=== PATIENT | female | born 1980 | race Caucasian/White ===

== ENCOUNTER → 2020-07-27 13:38 | Outpatient (CLI) | payer BC, SELFPAY ==
[2020-07-27 14:34] LABS: Alanine Aminotransferase 37 U/L (12-78); Albumin Level 4.4 g/dl (3.5-5.0); Albumin/Globulin Ratio 1.6 (1.1-1.8); Alkaline Phosphatase 77 U/L (38-126); Aspartate Amino Transferase 41 U/L (14-36); Basophils % 0.5 % (0.1-2.0); Bilirubin,Total 0.4 mg/dl (0.2-1.3); Blood Urea Nitrogen 6 mg/dl (7-17); Calcium 9.4 mg/dl (8.4-10.2); Carbon Dioxide 29 mmol/L (22.0-30.0); Chloride 101 mmol/L (98-107); Eosinophils # 0.1 K/mm3 (0.0-0.4); Eosinophils % 1.8 % (0.1-12.0); Estimated Glomerular Filt Rate 110 ml/min (>60); GFR (African American) 133 ML/MIN (>60); Globulin 2.8 g/dL (1.3-3.2); Glucose 102 mg/dl (74-100); Hematocrit 39.1 % (37.0-47.0); Hemoglobin 12.9 g/dL (12.2-16.2); Lymphocytes % 31.3 % (10-50); Mean Corpuscular HGB Conc 32.9 g/dL (31.8-35.4); Mean Corpuscular Hemoglobin 30.6 pg (27.0-31.2); Mean Platelet Volume 10.4 fl (7.4-10.4); Monocytes # 0.3 K/mm3 (0.1-1.0); Monocytes % 4.2 % (1.7-9.3); Neutrophils % 62.1 % (37.0-80.0); Platelet Count 96 K/mm3 (142-424); Red Blood Count 4.21 M/mm3 (4.20-5.40); Red Cell Distribution Width 14.1 % (11.5-17.5); Sodium 138 mmol/L (136-145); Total Protein,Serum 7.2 g/dl (6.3-8.2); White Blood Count 6.4 K/mm3 (4.8-10.8)
[2020-07-30 11:03] LABS: HIV Screen 4th Generation wRfx Non Reactive (Non Reactive); Hep A Ab, IgM Negative (Negative); Hep A Ab, Total Positive (Negative); Hep B Core Ab, Total Negative (Negative)
[2020-07-30 11:23] LABS: Hep B Surface Ab, Qual Non Reactive (.); Hepatitis B Surface Antigen Negative (Negative); Hepatitis C Antibody >11.0 s/co ratio (0.0-0.9)
== END ==
PROVIDERS: Visit Provider Family Medicine
DX: F19.11 Other psychoactive substance abuse, in remission (principal); Z87.898 Personal history of other specified conditions; R94.5 Abnormal results of liver function studies; Z11.4 Encounter for screening for human immunodeficiency virus [HIV]
CPT/HCPCS: 80053; 85025; 86703; 86704; 86706; 86708; 87340; 87380; G0432

== ENCOUNTER → 2020-08-07 08:21 | Outpatient (CLI) | payer BC, SELFPAY ==
--- NOTE | 2020-08-07 08:21 | US_ITS ---
PROCEDURE: US LIVER CLINICAL INDICATION: cirrhosis COMPARISON: No exams were available for comparison FINDINGS: PANCREAS: Unremarkable. No obvious mass or abnormal fluid collection. No ductal dilatation LIVER: No focal liver lesions demonstrated. Homogeneous echogenicity. No intrahepatic biliary ductal dilatation evident. There is appropriate direction of blood flow within a non dilated portal vein RIGHT KIDNEY: Unremarkable. Normal size and echogenicity. No hydronephrosis GALLBLADDER: Prior cholecystectomy. Common bile duct is normal at 3 mm. IMPRESSION: Prior cholecystectomy otherwise negative liver ultrasound. Dictated by: Jarvis Moreno MD 08/08/2020 13:22 Jarvis Moreno MD in [place] 08/08/2020 13:22
--- NOTE | 2020-08-07 08:21 | MM_ITS ---
PROCEDURE: MM DIG MAMM BI DX W/CAD Digital Breast Tomosynthesis Included CLINICAL INDICATION: 12:00 right nipple palpable mass There is a history of breast cancer in the patient's paternal aunt. COMPARISON: [facility] [place] TOMOSYN COBY from 03/20/2020 TECHNIQUE: Standard CC and MLO images and 3D Tomosynthesis was obtained. R2 CAD reviewed. FINDINGS: Prominent fibroglandular densities are seen in the subareolar regions of both breasts. There is a probable nodular density just deep to the nipple right breast best seen on mandi images and similar to findings on the previous outside study 03/20/2020. Recommend the patient return for spot compression views and ultrasound for additional evaluation. There are few scattered benign-appearing microcalcifications in each breast. There is no suspicious cluster of microcalcifications. IMPRESSION: Fibrofatty parenchyma with possible developing asymmetric density deep to the nipple right breast BI-RAD Category: 0 Need Additional Imaging Evaluation FOLLOW-UP: IMM Immediate Follow-up Recommended (A letter has been sent to the patient regarding results of the study.) Dictated by: Dr. Hilario Valencia MD 08/17/2020 09:27 Dr. Hilario Valencia MD in [place] 08/17/2020 09:27
== END ==
PROVIDERS: PCP Family Medicine; Visit Provider Family Medicine
DX: N63.41 Unspecified lump in right breast, subareolar (principal); K74.60 Unspecified cirrhosis of liver
CPT/HCPCS: 76705; 77062; 77066; G0279

== ENCOUNTER → 2020-08-23 18:05 | Outpatient (CLI) | payer BC, SELFPAY ==
[2020-08-23 18:58] LABS: Basophils % 0.5 % (0.1-2.0); Eosinophils # 0.1 K/mm3 (0.0-0.4); Eosinophils % 1.3 % (0.1-12.0); Hematocrit 37.4 % (37.0-47.0); Hemoglobin 11.9 g/dL (12.2-16.2); Lymphocytes # 1.4 K/mm3 (0.7-4.5); Lymphocytes % 34.6 % (10-50); Mean Corpuscular HGB Conc 31.7 g/dL (31.8-35.4); Mean Corpuscular Hemoglobin 30.7 pg (27.0-31.2); Mean Corpuscular Volume 96.8 fl (81-99); Mean Platelet Volume 9.5 fl (7.4-10.4); Monocytes # 0.2 K/mm3 (0.1-1.0); Neutrophils # 2.3 K/mm3 (1.8-7.8); Neutrophils % 58.6 % (37.0-80.0); Platelet Count 106 K/mm3 (142-424); Red Blood Count 3.86 M/mm3 (4.20-5.40); Red Cell Distribution Width 14.4 % (11.5-17.5)
[2020-08-23 19:22] LABS: C-Reactive Protein 5.5 mg/L (0-4)
[2020-08-26 14:50] LABS: Anti-Centromere B Antibodies <0.2 AI (0.0-0.9); Anti-Jo-1 <0.2 AI (0.0-0.9); Anti-Smith Antibody <0.2 AI (0.0-0.9); Antichromatin Antibodies <0.2 AI (0.0-0.9); Antiscleroderma-70 Antibodies <0.2 AI (0.0-0.9); RNP Antibodies <0.2 AI (0.0-0.9); Sjogren's Anti-SS-A <0.2 AI (0.0-0.9); Sjogren's Anti-SS-B <0.2 AI (0.0-0.9)
[2020-08-26 16:36] LABS: Anti-DNA (DS) Ab Qn 1 IU/mL (0-9)
== END ==
PROVIDERS: Visit Provider Family Medicine
DX: R50.9 Fever, unspecified (principal)
CPT/HCPCS: 85025; 86140; 86225; 86235; 86618

== ENCOUNTER → 2020-08-27 13:45 | Outpatient (CLI) | payer BC, SELFPAY ==
--- NOTE | 2020-08-27 13:50 | US_ITS ---
PROCEDURE: US BREAST RT COMPLETE CLINICAL INDICATION: abnormal mammogram COMPARISON: No exams were available for comparison FINDINGS: There is a small hypoechoic benign-appearing cystic lesion at the 12 o'clock position mid breast measuring 0.2 by 0.3 x 0.2 cm. There is a larger hypoechoic cystic lesion with smooth well-defined borders 1 o'clock position near the nipple measuring 0.8 by 0.9 by 1.1 cm. There are couple of associated mildly dilated ducts immediately adjacent to the cystic lesion. There is a 3rd cystic lesion at the 9 o'clock position near the nipple measuring 1.1 x 0.4 cm with a small satellite hypoechoic lesion with internal echoes likely representing a complex cyst. There is no suspicious solid lesions seen. There is a normal appearing node in the axilla. IMPRESSION: Multiple benign-appearing cystic lesions as described and recommend the patient have a six-month follow-up ultrasound at the time of the return to the normal screening mammogram schedule Dictated by: Dr. Hilario Valencia MD 08/29/2020 08:27 Dr. Hilario Valencia MD in [place] 08/29/2020 08:27
--- NOTE | 2020-08-27 13:50 | MM_ITS ---
PROCEDURE: MM DIG MAMM DX UNILAT RT CAD Digital Breast Tomosynthesis Included CLINICAL INDICATION: ABN MAMM COMPARISON: [facility] SCN DIG BREAST TOMOSYN COBY from 03/20/2020 MG MM DIG MAMM BI DX W/CAD from 08/07/2020 US US BREAST RT COMPLETE from 08/27/2020 TECHNIQUE: Standard CC and MLO images and 3D Tomosynthesis was obtained. R2 CAD reviewed. Additional 90 degree lateral view and spot compression MLO and CC views were obtained. FINDINGS: There is a smoothly marginated round nodular density just superior and lateral to the nipple. The small nodular density just medial and deep to the nipple seen on the study of 08/07/2020 appears to press out somewhat on the spot CC view. No other abnormality is seen on the spot views and no suspicious microcalcifications. Ultrasound performed the same date shows a small benign-appearing cystic lesion at the 1 o'clock position measuring 0.2 by 0.3 x 0.2 cm and a slightly larger hypoechoic cystic-appearing lesion at the 1 o'clock position near the nipple measuring 0.8 by 0.9 by 1.1 cm with a couple of adjacent slightly dilated ducts noted. There is good acoustic enhancement deep to this lesion. There is a somewhat oval hypoechoic cystic-appearing lesion at the 9 o'clock position near the nipple measuring 1.1 x 0.4 by 1.0 cm. These cystic-appearing lesions appear to correspond in size and location with the nodular densities on the problem solving views on the current mammogram. Suggest the patient return to normal yearly screening mammography schedule and patient should probably have a six-month follow-up ultrasound right breast as well. IMPRESSION: Apparent benign-appearing cystic lesions for right breast with no suspicious solid lesions seen and no findings of architectural distortion. BI-RAD Category: 2 Benign Finding(s) FOLLOW-UP: 6M 6Month Follow-up to return to normal yearly screening schedule (A letter has been sent to the patient regarding results of the study.) Dictated by: Dr. Hilario Valencia MD 08/29/2020 08:24 Dr. Hilario Valencia MD in [place] 08/29/2020 08:24
== END ==
PROVIDERS: PCP Family Medicine; Visit Provider Family Medicine
DX: R92.8 Other abnormal and inconclusive findings on diagnostic imaging of breast (principal)
CPT/HCPCS: 76641; 77061; 77065; G0279

== ENCOUNTER 2020-09-07 19:51 | Emergency (ER) | payer BC, SELFPAY ==
[2020-09-07 19:55] VITALS: BP 121/79; PULSE 70; RESP 18; TEMP 36.6; O2SAT 98; BMI 23.0
--- NOTE | 2020-09-07 19:58 | HMH.EDUTC ---
[facility] [place] Disposition Clinical Impression: Right carpal tunnel syndrome Disposition: Home, Self-Care Condition on Discharge: Good Instructions: DI for Carpal Tunnel Syndrome Additional Instructions: Rest the extremity, Wear the elastic wrist splint as much time as tolerated, Elevate the extremity as tolerated while you are resting. Take naproxen for pain. I sent in a prescription to your pharmacy. Follow up with Dr. Chakraborty (orthopedics). I put in a referral but you need to call his office and schedule an appointment. Follow up with your regular doctor. GO TO THE ER FOR ANY WORSENING SYMPTOMS Prescriptions: Naproxen [Naproxen 500mg tab] 500 mg PO BIDP PRN #30 tab PRN Reason: Moderate Pain Transmission Status: Received by [facility] Referrals: Guru Lara MD [Primary Care Provider] - Forms: Work/School Release Time of Disposition: 20:30 Medical Decision Making - Medical Records Medical records reviewed: No: I reviewed the patient's medical records. - Laurent Inquiry Pt receiving controlled substance: No Vital Signs: 09/07/20 19:55 09/07/20 20:40 Temperature 98 F 98 F Temperature Source Oral Pulse Rate 73 Pulse Rate [Right] 70 Respiratory Rate 18 14 Blood Pressure 119/74 Blood Pressure [Right Arm] 121/79 Blood Pressure Mean [Right Arm] 93 Blood Pressure Source [Right Arm] Automatic Cuff Blood Pressure Position [Right Arm] Sitting 02 Sat by Pulse Oximetry 98 Oxygen Delivery Method Room Air Orders (Tests/Meds): ORDERS Category Date Time Status XR hand RT min 3V Stat Exams 09/07/20 20:04 Taken XR wrist RT min 3V Stat Exams 09/07/20 20:04 Taken - Radiology Data #1 Image(s): Wrist, Hand Image Reviewed: Yes I reviewed the patient's radiology image Preliminary Findings: No Fracture Seen [facility] [place] HPI - General Stated complaint: right wrist and hand swelling Time Seen by Provider: 09/07/20 19:58 - History of Present Illness Provider Complaint: She reports that she has had right hand pain and numbness intermitently for the past 3 weeks. She denies any known injury. She statest that she wakes up at night and her symptoms are way worse. - Related Data Previous Rx's Medication Instructions Recorded gabapentin 600 mg tablet 600 mg PO TID PRN #90 tab 08/23/20 ibuprofen 800 mg tablet 800 mg PO Q8H PRN #90 tab 08/23/20 Naproxen [Naproxen 500mg tab] 500 mg PO BIDP PRN #30 tab 09/07/20 Allergies Allergy/AdvReac Type Severity Reaction Status Date / Time aspirin [From Paul Aspirin] Allergy Hives Verified 09/07/20 19:55 azithromycin Allergy hives, Verified 09/07/20 19:55 nausea From Tramadol HCl Allergy Unknown Uncoded 08/23/20 13:02 steroids AdvReac Severe Agitated Uncoded 08/23/20 13:11 [facility] History - Hepatitis A Screen Attestation statement:: This patient has been screened for Hepatitis A risk factors. I have reviewed the patient's past medical history: Yes Other Surgeries: Yes: Cholecystectomy, , Tubal Ligation Comment: uretine ablasion - Social History Smoking Status: Current every day smoker Tobacco Type: cigarettes Alcohol Intake: never Substance Use Type: former substance user, painkillers, opiates, prescription drug Occupational Status: unemployed Family Hx:: Cancer ROS Obtained: Yes All systems reviewed & no additional complaints - Constitutional Constitutional: Reports system reviewed and no additional complaints, except as docu - Eyes Eyes: Reports system reviewed and no additional complaints, except as docu - ENT Ears, Nose, Mouth, and Throat: Reports system reviewed and no additional complaints, except as docu - Cardiovascular Cardiovascular: Reports system reviewed and no additional complaints, except as docu - Respiratory Respiratory: Reports system reviewed and no additional complaints, except as docu - Gastrointestinal Gastrointestingal: Reports: system reviewed and no additional compl
--- NOTE | 2020-09-07 20:04 | XR_ITS ---
PROCEDURE: XR WRIST RT MIN 3V CLINICAL INDICATION: PAIN Pain and swelling COMPARISON: CR XR HAND RT MIN 3V from 09/07/2020 FINDINGS: No fracture or dislocation. No lytic or blastic change. There is normal mineralization. The joint spaces are well-preserved. No significant degenerative/arthritic changes. No erosive changes evident. Other findings:None. IMPRESSION: No acute findings. Dictated by: Jarvis Moreno MD 09/08/2020 05:52 Jarvis Moreno MD in [place] 09/08/2020 05:52
[2020-09-07 20:40] VITALS: BP 119/74; PULSE 73; RESP 14; TEMP 36.6
== END 2020-09-07 20:39 | disposition home or self-care (01) ==
PROVIDERS: Emergency Provider Nurse Practitioner Family; PCP Family Medicine
DX: G56.01 Carpal tunnel syndrome, right upper limb (principal)
CPT/HCPCS: 73110; 73130; 99202; G0463

== ENCOUNTER → 2020-11-13 13:06 | Outpatient (CLI) | payer BC, SELFPAY ==
--- NOTE | 2020-11-13 13:06 | US_ITS ---
PROCEDURE: US FNA BREAST CLINICAL INDICATION: Palpable nodule left breast at 1 o'clock. COMPARISON: MG MM DIG MAMM BI DX W/CAD from 08/07/2020 US US BREAST LT LIMITED from 11/13/2020 FINDINGS: Left breast ultrasound: At 12 o'clock there is a complicated 7 x 6 mm cyst. At 1 o'clock near the nipple there is a complex cystic lesion measuring 23 x 14 mm with apparent solid appearing component peripherally versus underlying dense breast tissue. This nodule was localized for FNA. Patient does report that this area has somewhat decreased in size by palpation. There are multiple other smaller cystic lesions of the left breast. Left breast FNA: Following obtaining informed consent and time-out procedure with sonographic guidance and using buffered lidocaine with aseptic technique, aspiration was performed of the complex nodule. Small amount of pus appearing aspirate was obtained and sent for culture and sensitivity. Cytology: Negative for malignancy. Numerous foamy macrophages consistent with benign cyst contents. Culture and sensitivity is pending IMPRESSION: Uneventful ultrasound-guided FNA of the left breast of the complex nodule at 1 o'clock. Cytology was negative for malignancy. There was some pus appearing material aspirated from this nodule. Suspect that this represents a small abscess. Recommend repeat ultrasound in 3 months assuming that the area does not increase in size by palpation. Also recommend correlation with culture and sensitivity which is pending Dictated by: Jarvis Moreno MD 11/16/2020 09:53 Jarvis Moreno MD in [place] 11/16/2020 09:53
== END ==
PROVIDERS: PCP Family Medicine; Visit Provider Surgery
DX: N64.9 Disorder of breast, unspecified (principal); N60.02 Solitary cyst of left breast
CPT/HCPCS: 10005; 76642; 87070; 87205

== ENCOUNTER 2022-07-31 14:30 | Emergency (ER) | payer BC, SELFPAY ==
[2022-07-31 15:20] VITALS: RESP 20; TEMP 36.8; O2SAT 97; BMI 18.6
--- NOTE | 2022-07-31 15:28 | EXP.UTC ---
Discharge Plan Disposition Patient Disposition: Home, Self-Care Condition: Good Prescriptions Prescriptions: New phenazopyridine [Pyridium] 200 mg tablet 200 mg PO Q8H 2 Days Qty: 6 0RF sulfamethoxazole-trimethoprim [Bactrim DS] 800-160 mg Tablet 1 tab PO BID Qty: 14 0RF ondansetron 4 mg Tablet,Disintegrating 4 mg PO Q8H PRN (Reason: Nausea) Qty: 12 0RF No Action gabapentin 300 mg capsule 300 mg PO TID PRN (Reason: pain) Qty: 90 3RF Referrals Follow up/Referrals: Guru Lara MD [Primary Care Provider] - See instructions Activity Restrictions/Add. Instructions Additional Instructions/Restrictions: Drink plenty of fluids. Take tylenol or ibuprofen for pain or fever. Take the medications as directed. Follow up with your regular doctor. GO TO THE ER FOR ANY WORSENING SYMPTOMS The pyridium will make your urine turn orange, this is an expected side effect. It will stain your clothes if it comes into contact with them. We will culture the urine. That will tell what bacteria is causing your infection and which antibiotics will treat it best. Sometimes the first antibiotic we prescribe turns out to not work against different bacteria. So, make sure you follow up within 3 days if you are not getting better. Clinical Impressions Clinical Impression: UTI (urinary tract infection) Stand Alone Forms Stand Alone Forms: Work/School Release Instructions Patient Instructions: Urinary Tract Infection, Urine Culture, Phenazopyridine Discharge ED Provider: Garrett Dodson [facility] General Stated complaint: possible kidney inf Time Seen by Provider: 07/31/22 15:28 History of Present Illness Provider Complaint: She states that for the past 2 days she has had dysuria, low back pain, and urinary frequency. Related Data Previous Rx's Medication Instructions Recorded gabapentin 300 mg capsule 300 mg PO TID PRN pain #90 caps 06/17/22 ondansetron 4 mg disintegrating 4 mg PO Q8H PRN Nausea #12 tabs 07/31/22 tablet phenazopyridine 200 mg tablet 200 mg PO Q8H 2 days #6 tabs 07/31/22 (Pyridium) sulfamethoxazole 800 1 tab PO BID #14 tabs 07/31/22 mg-trimethoprim 160 mg tablet (Bactrim DS) Allergies Allergy/AdvReac Type Severity Reaction Status Date / Time aspirin [From Paul Aspirin] Allergy Hives Verified 07/31/22 15:39 azithromycin Allergy hives, Verified 07/31/22 15:39 nausea From Tramadol HCl Allergy Unknown Uncoded 06/16/22 14:05 steroids AdvReac Severe Agitated Uncoded 06/16/22 14:05 [facility] Disclaimer: The information contained in this section may have been updated after the patient was seen, as this information can be updated by other users. Medical History No significant past medical history Family History Other No significant family history Social History Smoking Status: Current every day smoker tobacco type: cigarettes packs per day: 2 alcohol intake: never substance use type: former substance user, opiates, painkillers and prescription drug current occupational status: unemployed Travel in the last 8 weeks: None ROS Obtained: Yes All systems reviewed & no additional complaints except as documented Constitutional Constitutional: Reports system reviewed and no additional complaints, except as documented, Denies chills and Denies fever(s) Eyes Eyes: Denies eye discharge ENT Ears, Nose, Mouth, and Throat: Denies dysphagia, Denies sore throat and Denies throat swelling Cardiovascular Cardiovascular: Denies chest pain and Denies dyspnea Respiratory Respiratory: Denies chest congestion, Denies cough and Denies dyspnea Gastrointestinal Gastrointestingal: Denies abdominal pain, constipation, diarrhea, dysphagia, nausea or vomiting Genitourinary Female Genitourinary: Reports as per HPI, R
[2022-07-31 16:10] VITALS: BP 101/69; PULSE 84; RESP 20; TEMP 36.8; O2SAT 97
[2022-07-31 18:11] LABS: Apearance,Urine Cloudy (Clear); Blood, Urine 1+ (Negative); Color,Urine Yellow (Yellow); Glucose,Urine (UA) Negative (Negative); Ketones,Urine Negative (Negative); Protein,Urine Negative (Negative)
[2022-07-31 18:12] LABS: Bilirubin,Urine Negative (Negative); UTC Leukocyte Esterase,Urine 2+ (Negative); UTC Nitrate,Urine Negative (Negative); Urobilinogen,Urine 0.2 EU/dl (0.2)
== END 2022-07-31 16:10 | disposition home or self-care (01) ==
PROVIDERS: Emergency Provider Nurse Practitioner Family; PCP Family Medicine
DX: N39.0 Urinary tract infection, site not specified (principal)
CPT/HCPCS: 81003; 87086; 87088; 87186; 99212; 99213; G0463

== ENCOUNTER 2024-06-01 12:17 | Emergency (ER) | payer BC, SELFPAY ==
--- NOTE | 2024-06-01 12:42 | EXP.UTC ---
Discharge Plan Disposition Patient Disposition: Home, Self-Care Condition: Good Prescriptions Prescriptions: New amoxicillin 875 mg tablet 875 mg PO Q12H Qty: 20 0RF ciprofloxacin-dexamethasone 0.3-0.1 % Drops,Suspension 2 drp Ear-Left BID 7 Days Qty: 1 0RF No Action methadone 10 mg/mL solution 80 mg IM DAILY Qty: 20 0RF Referrals Follow up/Referrals: Guru Lara MD [Primary Care Provider] - See instructions Activity Restrictions/Add. Instructions Additional Instructions/Restrictions: Drink plenty of fluids. Take tylenol or ibuprofen for pain or fever. Take the medications as directed. Use the ear drops as directed. Follow up with your regular doctor. GO TO THE ER FOR ANY WORSENING SYMPTOMS Clinical Impressions Clinical Impression: Left acute otitis media, Left otitis externa Instructions Patient Instructions: How to Instill Ear Drops, Middle Ear Infection, DI for Otitis Externa Print Language Print Language: Belizean Discharge ED Provider: Garrett Dodson [facility] HPI General Stated complaint: white bump in ear Time Seen by Provider: 06/01/24 12:41 Related Data Previous Rx's ?Medication ?Instructions ?Recorded methadone 10 mg/mL injection 80 mg (8 mL) IM DAILY #20 mL 02/06/23 solution amoxicillin 875 mg tablet 875 mg PO Q12H #20 tabs 06/01/24 ciprofloxacin 0.3 %-dexamethasone 2 drp Ear-Left BID 7 days #1 ea 06/01/24 0.1 % ear drops,suspension Allergies Allergy/AdvReac Type Severity Reaction Status Date / Time aspirin (From Paul Aspirin) Allergy Hives Verified 12/28/23 10:29 azithromycin Allergy hives, Verified 12/28/23 10:29 nausea From Tramadol HCl Allergy Unknown Uncoded 12/28/23 10:29 steroids AdvReac Severe Agitated Uncoded 12/28/23 10:29 [facility] Disclaimer: The information contained in this section may have been updated after the patient was seen, as this information can be updated by other users. Medical History (Updated 06/01/24 @ 13:26 by Garrett Dodson APRN) Constipation No significant past medical history Family History Other No significant family history Social History (Reviewed 12/28/23 @ 10:39 by LUCY Hilario Smoking Status: Current every day smoker tobacco type: cigarettes packs per day: 2 alcohol intake: never substance use type: former substance user, marijuana, opiates, painkillers and prescription drug current occupational status: unemployed Travel in the last 8 weeks: None ROS Obtained: Yes All systems reviewed & no additional complaints except as documented Constitutional Constitutional: Denies chills, Reports fever(s) and Reports poor appetite Eyes Eyes: Denies eye discharge ENT Ears, Nose, Mouth, and Throat: Denies ear discharge, Reports otalgia, Denies hearing loss, Denies sinus pain and Reports sore throat Cardiovascular Cardiovascular: Denies chest pain and Denies dyspnea Respiratory Respiratory: Denies chest congestion, Reports cough and Denies dyspnea Gastrointestinal Gastrointestingal: Denies abdominal pain, diarrhea, nausea or vomiting Musculoskeletal Musculoskeletal: Denies arthralgias Integumentary/Breasts Skin/Breast: Denies rash Physical Exam General General appearance: alert and in no apparent distress Head Head exam: atraumatic, normocephalic and normal inspection Eye Eye exam: Present normal appearance; Absent PERRL or EOMI ENT ENT exam: Present mucous membranes moist and normal external ear exam Expanded ENT Exam TM/Canal exam: Bilateral TM: erythema, bulging and effusion Nose exam: Absent sinus tenderness Nasal speculum exam: Bilateral: normal Mouth exam: Present normal external inspection and other; Absent drooling Teeth exam: Present normal inspection Throat exam: Present tonsillar erythema and tonsillomegaly Neck Neck exam: Present normal inspection, full ROM and trachea midline; Absent tenderness, meningismus or lymphadenopathy Chest Chest inspection: Present normal inspection and symmetric chest wall rise; Absent tenderness Respiratory Respiratory exam: Present normal lung sounds bilaterally; Absent respiratory distress, wheezes or stridor Cardiovascular Cardiovascular exam: Present regular rate, normal rhythm and normal heart sounds; Absent tachycardia or irregular rhythm Abdominal Exam Abdominal exam: Present soft and normal bowel sounds; Absent distention, tenderness, guarding, rebound or rigidity Extremities Exam Extremities exam: Present normal inspection and normal capillary refill; Absent tenderness, joint swelling or calf tenderness Back Exam Back exam: Present normal inspection and full ROM; Absent tenderness, CVA tenderness (R) or CVA tenderness (L) Neurological Exam Neurological exam: Present alert, oriented X3, CN II-XII intact, normal gait and reflexes normal; Absent motor sensory deficit Psychiatric Psychiatric exam: Present normal affect and normal mood Skin Skin exam: Present warm, dry, intact and normal color Lymphatic Lymphatic Findings: no adenopathy Medical Decision Making Medical Records Medical records reviewed: No I reviewed the patient's medical records. Screening: Per USPSTF and CDC recommendations, given the prevalence of disease in our region, it is our hospital?s policy to screen for HIV and viral Hepatitis for all patients aged 18 and over and those with ongoing risk factors. [place] Inquiry Pt receiving controlled substance: No Lab Data Lab results reviewed: Yes I reviewed the patient's lab results.
[2024-06-01 12:45] VITALS: BP 112/56; PULSE 68; RESP 20; TEMP 36.6; O2SAT 99; BMI 23.5
[2024-06-01 13:25] VITALS: BP 112/56; PULSE 68; RESP 20; TEMP 36.6; O2SAT 99
== END 2024-06-01 13:29 | disposition home or self-care (01) ==
PROVIDERS: Emergency Provider Nurse Practitioner Family; PCP Family Medicine
DX: H66.92 Otitis media, unspecified, left ear (principal); H60.92 Unspecified otitis externa, left ear; H92.02 Otalgia, left ear
CPT/HCPCS: 99212; G0381

== ENCOUNTER 2024-06-25 20:18 | Emergency (ER) | payer BC, SELFPAY ==
--- NOTE | 2024-06-25 20:48 | XR_ITS ---
PROCEDURE INFORMATION: Exam: XR Left Knee Exam date and time: 06/25/2024 9:01 PM Age: 44 years old Clinical indication: Pain; Knee; Left; Additional info: Medial joint pain with repetitive trauma TECHNIQUE: Imaging protocol: Radiologic exam of the left knee. Views: 3 views. COMPARISON: No relevant prior studies available. FINDINGS: Bones/joints: Normal. Soft tissues: Normal. IMPRESSION: No acute findings.
[2024-06-25 20:50] VITALS: BP 116/60; PULSE 57; RESP 16; TEMP 36.7; O2SAT 96; BMI 22.1
[2024-06-25] MEDS: ACETAMINOPHEN 500MG TAB 1000 MG PO (20:59)
[2024-06-25] MEDS: IBUPROFEN 600 MG TABLET PO (20:59)
--- NOTE | 2024-06-25 20:59 | HMH.EDGENADL ---
Discharge Plan Disposition Patient Disposition: Home, Self-Care Chief Complaint: PAIN Prescriptions Prescriptions: No Action methadone 10 mg/mL solution 80 mg IM DAILY Qty: 20 0RF amoxicillin 875 mg tablet 875 mg PO Q12H Qty: 20 0RF ciprofloxacin-dexamethasone 0.3-0.1 % Drops,Suspension 2 drp Ear-Left BID 7 Days Qty: 1 0RF Referrals Follow up/Referrals: Guru Lara MD [Primary Care Provider] - See instructions Activity Restrictions/Add. Instructions Additional Instructions/Restrictions: Call your family doctor to establish care for this visit to the emergency department and schedule follow-up within 48 hours to ensure improvement. If you have any worsening of your condition or any other concerning signs or symptoms, return to the emergency department or your primary care doctor for further evaluation. Take Tylenol 1000 mg every 6 hours (4 times daily) and ibuprofen 400 mg every 6 hours (4 times daily) as needed with food and water to prevent GI upset and kidney damage. Clinical Impressions Clinical Impression: Acute pain of left knee Print Language Print Language: [place]gu[place] Discharge ED Provider: Franco Mcgraw General Adult HPI General Chief complaint: PAIN Stated complaint: LT knee swelling- no inj Time Seen by Provider: 06/25/24 20:45 Mode of Arrival: Ambulatory Source of Information: Patient Limitations: No Limitations Description of Symptoms (Recalled from ER Triage Doc. by RN): Pt states she has left knee pain no known injury History of Present Illness HPI narrative: Please note that above description of symptoms, in this electronic medical record under categorization of recalled from ER triage doctor by RN are reflective of an initial nursing assessment, however, is not reflective of my full history and physical exam that was personally taken and clarified. Consequentially, this preceding description of symptoms, which may include the patient's categorized chief complaint in the EMR, do not reflect my personal clinical impression, and the ultimate description of history of present illness and patient stated complaints should be deferred to this section of the note. Unless stated otherwise or congruent with this section of the note, additional signs, symptoms, or incongruence should be interpreted as inaccurate with my clinical impression. Related Data Previous Rx's ?Medication ?Instructions ?Recorded methadone 10 mg/mL injection 80 mg (8 mL) IM DAILY #20 mL 02/06/23 solution amoxicillin 875 mg tablet 875 mg PO Q12H #20 tabs 06/01/24 ciprofloxacin 0.3 %-dexamethasone 2 drp Ear-Left BID 7 days #1 ea 06/01/24 0.1 % ear drops,suspension Allergies Allergy/AdvReac Type Severity Reaction Status Date / Time aspirin (From Paul Aspirin) Allergy Hives Verified 12/28/23 10:29 azithromycin Allergy hives, Verified 12/28/23 10:29 nausea From Tramadol HCl Allergy Unknown Uncoded 12/28/23 10:29 steroids AdvReac Severe Agitated Uncoded 12/28/23 10:29 [facility] Disclaimer: The information contained in this section may have been updated after the patient was seen, as this information can be updated by other users. Medical History (Updated 06/25/24 @ 21:18 by Franco Mcgraw MD) Constipation No significant past medical history Family History Other No significant family history Social History Smoking Status: Current every day smoker tobacco type: cigarettes packs per day: 2 alcohol intake: never substance use type: former substance user, marijuana, opiates, painkillers and prescription drug current occupational status: unemployed Travel in the last 8 weeks: None Have you lived/traveled outside US in past 30 days?: No Contact w/someone who lives/traveled outside US past 30 days?: No Exposure to someone with infectious disease in past 14 days?: No Do you have a fever (greater than 100.4 F or 38 C)?: No Have you tested positive for COVID-19: No Exposed to someone with COVID-19 in past 14 days?: No Do you have a sore throat?: No Do you have a cough?: No Do you have any weakness?: No Do you have any diarrhea?: No Are you experiencing any unusual bleeding?: No Do you have any muscle aches/pain?: No Do you have any abdominal pain?: No Are you experiencing loss of taste or smell?: No Other Medical History Have you received the Pneumonia Vaccine: No ROS Obtained: Yes All systems reviewed & no additional complaints except as documented Physical Exam General General appearance: alert Head Head exam: atraumatic and normocephalic Eye Eye exam: Present normal appearance, PERRL and EOMI Neck Neck exam: Present normal inspection, full ROM and trachea midline Respiratory Respiratory exam: Absent respiratory distress, wheezes, stridor, accessory muscle use or prolonged expiratory phase Cardiovascular Cardiovascular exam: Present other (Pulses equal symmetric in upper and lower extremities) Abdominal Exam Abdominal exam: Present soft; Absent distention, tenderness or pulsatile mass Extremities Exam Extremities exam: Absent edema Neurological Exam Neurological exam: Present alert, oriented X3 and CN II-XII intact; Absent motor sensory deficit Skin Skin exam: Present warm and dry; Absent diaphoresis or erythema Medical Decision Making Medical Records Medical records reviewed: Yes I reviewed the patient's medical records. Screening: Per USPSTF and CDC recommendations, given the prevalence of disease in our region, it is our hospital?s policy to screen for HIV and viral Hepatitis for all patients aged 18 and over and those with ongoing risk factors. Laurent Inquiry Pt receiving controlled substance: No Laurent was queried for this patient: No Vital Signs: 06/25/24 20:50 Temperature 98.0 F Temperature Source Oral Pulse Rate [Right Brachial] 57 L Respiratory Rate 16 Blood Pressure [Right Arm] 116/60 Blood Pressure Mean [Right Arm] 78 Blood Pressure Source [Right Arm] Automatic Cuff Blood Pressure Position [Right Arm] Sitting 02 Sat by Pulse Oximetry 96 Oxygen Delivery Method Room Air Orders (Tests/Meds): ED MEDICATIONS Discontinued Medications Generic Name Dose Route Start Last Admin Trade Name Lauro PRN Reason Stop Dose Admin Acetaminophen 1,000 mg 06/25/24 20:48 06/25/24 20:59 Acetaminophen 500mg Tab PO 06/25/24 20:49 1,000 mg ONCE ONE Administration Ibuprofen 600 mg 06/25/24 20:48 06/25/24 20:59 Ibuprofen 600 Mg Tablet PO 06/25/24 20:49 600 mg ONCE ONE Administration ORDERS Category Date Time Status Knee XR left 3 views [XR knee LT 3V] Stat Exams 06/25/24 20:48 Taken HIV (1&2) Antibody Rapid Stat Lab 06/25/24 20:53 Ordered Hep C Ab with Reflex to RNA Stat Lab 06/25/24 20:53 Ordered Medical Decision Narrative: 44-year-old female no relevant medical history presenting with left knee pain. She states that she was on her knee/leg all day at work and now is having pain in it. She has had pain in this knee before, but no previous injury. Has not taken anything for the pain. Does smell of marijuana. History obtained the patient. On arrival, in no acute distress ambulating on the leg. Neurovascularly and structurally intact. I have very low concern that there is anything clinically emergent going on, but given the patient does have acute pain with walking around and minor repetitive traumas at work out of abundance of caution, left knee x-ray was obtained and patient was given Tylenol and Motrin. On independent interpretation this demonstrated no acute abnormalities. I feel this is likely quality control representative of chronic MSK pain and no acute injury. Because patient at baseline without signs or symptoms of clinical decompensation, deemed appropriate for discharge. Results were relayed to patient[] who voiced understanding and were agreeable to outpatient management and follow up. I discussed my clinical impression with patient[] and answered all questions. At this time, the evidence for any other entities in the differential is insufficient to warrant any further testing or ED observation. This was explained as well. Advisory was given that persistent or worsening symptoms require further evaluation. I confirmed the understanding of this discussion. Social Media Coordinator disclaimer Much of this encounter note is an electronic aircraft load controller spoken language to printed text. Electronic aircraft load controller of the spoken language may permit errors. Although I have reviewed the note, some errors may still exist. Critical Care Critical Care Time Critical Care Time: No
--- NOTE | 2024-06-25 21:07 | PC.NURSE ---
xray done at bedside
--- NOTE | 2024-06-25 21:18 | PC.NURSE ---
Pt ambulatory to room Skin pink warm and dry Resp full and easy. Speech clear and appropriate. No swelling appreciated.
[2024-06-25 21:26] VITALS: BP 104/68; PULSE 54; RESP 16; TEMP 36.8; O2SAT 98
== END 2024-06-25 21:30 | disposition home or self-care (01) ==
PROVIDERS: Emergency Provider Emergency Medicine; PCP Family Medicine
DX: M25.562 Pain in left knee (principal)
CPT/HCPCS: 73562; 99283

== ENCOUNTER 2024-11-09 13:00 | Outpatient (CLI) | payer OTHER, SELFPAY ==
[2024-11-09 18:45] LABS: Basophils % 0.7 % (0.1-2.0); Eosinophils # 0.1 Kmm3 (0.0-0.4); Eosinophils % 2.1 % (0.1-12.0); Hematocrit 34.7 % (37.0-47.0); Hemoglobin 11.5 g/dL (12.2-16.2); Immature Granulocytes # 0.01 10^3uL; Immature Granulocytes % 0.2 %; Lymphocytes # 1.7 K/mm3 (0.7-4.5); Lymphocytes % 30.4 % (10-50); Mean Corpuscular HGB Conc 33.1 g/dL (31.8-35.4); Mean Corpuscular Hemoglobin 30.3 pg (27.0-31.2); Mean Corpuscular Volume 91.3 fl (81-99); Mean Platelet Volume 11.5 fl (7.4-10.4); Monocytes # 0.4 K/mm3 (0.1-1.0); Monocytes % 6.9 % (1.7-9.3); Neutrophils # 3.4 K/mm3 (1.8-7.8); Neutrophils % 59.7 % (37.0-80.0); Nucleated Red Blood Cells # 0 10^3/uL; Nucleated Red Blood Cells % 0 %; Platelet Count 101 K/mm3 (142-424); Red Cell Distribution Width 13.2 % (11.5-17.5); Red Cell Distribution Width-SD 44.5 fL; White Blood Count 5.7 K/mm3 (4.8-10.8)
[2024-11-09 20:05] LABS: Albumin Level 4.2 g/dl (3.5-5.0); Chloride 106 mmol/L (98-107); Sodium 138 mmol/L (136-145)
[2024-11-09 20:06] LABS: Potassium 4.2 mmoL/L (3.5-5.1)
[2024-11-09 20:08] LABS: Alanine Aminotransferase 31 U/L (12-78); Albumin/Globulin Ratio 1.6 (1.1-1.8); Alkaline Phosphatase 82 U/L (38-126); Anion Gap 8.2 mEq/L (5-15); Aspartate Amino Transferase 34 U/L (14-36); Bilirubin,Total 0.2 mg/dl (0.2-1.3); Blood Urea Nitrogen 12 mg/dl (7-17); Carbon Dioxide 28 mmol/L (22.0-30.0); Estimated Glomerular Filt Rate 77 ml/min (>60); GFR (African American) 93 ML/MIN (>60); Globulin 2.6 g/dL (1.3-3.2); Total Protein,Serum 6.8 g/dl (6.3-8.2)
[2024-11-09 20:09] LABS: Calcium 8.9 mg/dl (8.4-10.2); Glucose 113 mg/dl (74-100)
[2024-11-09 20:44] LABS: Thyroid Stimulating Hormone 0.66 uIU/mL (0.465-4.68)
[2024-11-09 22:11] LABS: Hemoglobin A1C 5.3 % (4.0-6.0)
== END 2024-11-09 23:59 | disposition home or self-care (01) ==
LOC: LAB.DROPOF 11-11 12:53
PROVIDERS: PCP Nurse Practitioner; Visit Provider Nurse Practitioner
DX: J01.00 Acute maxillary sinusitis, unspecified (principal); R53.83 Other fatigue; F17.210 Nicotine dependence, cigarettes, uncomplicated
CPT/HCPCS: 80053; 83036; 84443; 85025

== ENCOUNTER 2025-02-15 15:08 | Outpatient (CLI) | payer OTHER, SELFPAY ==
[2025-02-15 19:43] LABS: Hematocrit 33.7 % (37.0-47.0); Hemoglobin 11.4 g/dL (12.2-16.2); Immature Granulocytes % 0 %; Mean Corpuscular HGB Conc 33.8 g/dL (31.8-35.4); Mean Corpuscular Hemoglobin 30.3 pg (27.0-31.2); Mean Corpuscular Volume 89.6 fl (81-99); Nucleated Red Blood Cells % 0 %; Platelet Count 89 K/mm3 (142-424); Red Blood Count 3.76 M/mm3 (4.20-5.40); Red Cell Distribution Width-SD 44.1 fL; White Blood Count 4.9 K/mm3 (4.8-10.8)
[2025-02-15 21:15] LABS: Alanine Aminotransferase 35 U/L (12-78); Albumin Level 4.1 g/dl (3.5-5.0); Albumin/Globulin Ratio 1.6 (1.1-1.8); Alkaline Phosphatase 71 U/L (38-126); Anion Gap 12.2 mEq/L (5-15); Aspartate Amino Transferase 38 U/L (14-36); Bilirubin,Total 0.3 mg/dl (0.2-1.3); Blood Urea Nitrogen 7 mg/dl (7-17); Calcium 8.6 mg/dl (8.4-10.2); Carbon Dioxide 28 mmol/L (22.0-30.0); Chloride 102 mmol/L (98-107); Creatinine,Serum 0.70 mg/dl (0.52-1.04); Estimated Glomerular Filt Rate 90 ml/min (>60); GFR (African American) 109 ML/MIN (>60); Globulin 2.6 g/dL (1.3-3.2); Glucose 75 mg/dl (74-100); Potassium 4.2 mmoL/L (3.5-5.1); Sodium 138 mmol/L (136-145); Total Protein,Serum 6.7 g/dl (6.3-8.2)
--- OUTSIDE RECORDS SUMMARY | 2025-02-16 11:50 | XMS_ITS ---
Author Name Auto Generated, Auto Generated Organization [facility] Address [address] [place] [address] Phone [phone] Care Team Providers Care Senior Cost Analyst Name Role Phone Darian Keita Unavailable [phone] Guru Lara Unavailable [phone] Functional Status No Results Mental Status No Results Allergies and Intolerances No Known Allergies Medications Medication Directions Start Date End Date methadone 10 mg/5 mL oral solution 90 mg SOLUTION, ORAL Oral Every 1 Day Indication: Opioid Use Disorder ThuFeb 26 10:25:00 EDT 2022Jul 14 00:00:00 EST 2023 methadone 10 mg/5 mL oral solution 50 mg SOLUTION, ORAL Oral Every 1 Day Indication: Opioid Use Disorder ThuJan 30 01:00:00 EDT 2022Feb 26 09:26:00 EDT 2022 Problems No Known Problems Reason for Referral
--- OUTSIDE RECORDS SUMMARY | 2025-02-16 11:50 | XMS_ITS ---
Author Name Auto Generated, Auto Generated Organization [facility] Address [address] [place] [address] Phone [phone] Care Team Providers Care Business Office Assistant Name Role Phone Darian Keita Unavailable [phone] Guru Lara Unavailable [phone] Functional Status No Results Mental Status No [...]
--- OUTSIDE RECORDS SUMMARY | 2025-02-16 11:50 | XMS_ITS | Clinical Summary ---
Author Organization [facility] are Address [address] [place] [address] Phone Care Team Providers Care Cerner Analyst Name Role Phone Unavailable Unavailable Conditions or Problems No information available. Medications No information available. Medications Administered No information available. Allergies, Adverse Reactions, Alerts No information available. Results No information available. Plan of Care No information available. Procedures No information available. Vital Signs No information available. Immunizations No information available. Advance Directives No information available.
--- OUTSIDE RECORDS SUMMARY | 2025-02-16 11:51 | XMS_ITS | Clinical Summary ---
Author Organization [facility] Address [address] [place] [address] Phone Care Team Providers Care Liquor Commissioner Name Role Phone Unavailable Primary Care Provider Unavailabl e Allergies Active Allergy Reactions Criticality Noted Date Comments Antihistimine 08/30/2015 Make me shake antihistamines Aspirin Hives 04/23/2011 Buspirone Other (See Comments) 08/30/2015 i just snap Erythromycin Hives 04/23/2011 Medications * This document contains information received from the source organization and may not represent a complete record from that organization. gabapentin (NEURONTIN) 600 mg Oral Tablet Take 600 mg by mouth 3 times daily. Active ibuprofen (ADVIL;MOTRIN) 400 mg Oral Tablet Take by mouth 2 times daily as needed for Pain. Active Active Problems Patient Care Coordination No te Formatting of this note migh t be different from the original. Care gap audit completed by Jennie Silvestre RN on 07/24/2023. [facility] Controlled Substance Protocol Completed: A. Informed Consent Statement signed (ONCE) (date) 01/28/16 B. Controlled Substance Agreement signed (ONCE) (date) 01/28/16 C. Comprehensive Urine Drug Screen was performed (YEARLY) (date) 01/28/16 D. Laurent report completed (EVERY 3 MONTHS) (date) 04/17/16 E. Screening tool for addiction (SOAPP) completed (YEARLY) (date) 01/28/16 F. Need for controlled substance is documented (EVERY VISIT) G. Pain Scale and or Functional capacity documented (EVERY VISIT) 02/20/17- Dismissed from [facility] for multiple no shows/cancellations Problem Noted Date Diagnosed Date Seizure disorder 08/17/2015 Encounter for long-term (current) use of other m edications 11/29/2014 Cervicalgia 11/29/2014 Myalgia and myositis, unspecified 11/29/2014 Bilateral low back pain with right-sided sciatic a 11/29/2014 Thoracic or lumbosacral neur itis or radiculitis, unspecified 11/29/2014 Displacement of lumbar inter vertebral disc without myelopathy 11/29/2014 Anxiety 09/01/2014 Surgical History Surgery Date Site/Laterality Comments TUBAL LIGATION SECTION CHOLECYSTECTOMY CARPAL TUNNEL RELEASE 10/31/2020 Right RIGHT CARPAL TUNNEL RELEASE; Surgeon: Kimani Rojas MD; Location: [facility]; Service: Orthopedics Medical History Medical History Date Comments Back pain, chronic Displacement of lumbar intervertebral disc witho ut myelopathy 11/29/2014 Thoracic or lumbosacral neuritis or radiculitis, unspecified 11/29/2014 Bilateral low back pain with right-sided sciatic a 11/29/2014 Myalgia and myositis, unspecified 11/29/2014 Cervicalgia 11/29/2014 Encounter for long-term (current) use of other m edications 11/29/2014 Encounter for blood transfusion r/t abruption Social History Tobacco Use Types Packs/Day Years Used Date Smoking Tobacco: Every Day Cigarettes 1 20 Smokeless Tobacco: Never Tobacco Cessation:Ready to Q uit: No Alcohol Use Standard Drinks/Week Comments No 0 (1 standard drink = 0.6 oz pur e alcohol) Sexually Active Control Partners Comments Yes Comments No Sex and Gender Information Value Date Recorded Sex Assigned at Not on file Legal Sex Female 5:23 AM EDT Gender Identity Not on file Sexual Orientation Not on file Obstetrics History Last Filed Vital Signs Vital Sign Reading Time Taken Comments Blood Pressure 104/68 01/20/2021 9:44 PM EDT Pulse 70 01/20/2021 9:28 PM EDT Temperature 37.1 C (98.8 F) 01/20/2021 5:08 PM EDT Respiratory Rate 20 01/20/2021 9:28 PM EDT Oxygen Saturation 97% 01/20/2021 9:28 PM EDT Inhaled Oxygen Concentration - - Weight 54.4 kg (120 lb) 01/20/2021 5:07 PM EDT Height 160 cm (5' 3 ) 01/20/2021 5:07 PM EDT Body Mass Index 21.26 01/20/2021 5:07 PM EDT Plan of Treatment Health Maintenance Due Date Last Done Comments Annual Wellness Exam 1981 DTaP/TDaP/Td (1 - Tdap) 1997 Cervical Cancer Screening 1999 Pap Smear 1999 HPV/Pap Cotest 2008 Breast Cancer Screening 11/02/2020 11/02/2018 Hepatitis B Vaccine (3 of 3 - 19+ 3-dose series) 08/17/2021 06/03/2021, 02/14/2021 Cologuard 2023 Colon Cancer Screening 2023 Colonoscopy 2023 FIT 2023 Sigmoidoscopy 2023 Virtual Colonography 2023 COVID-19 Vaccine (3 - 2023-2 5 season) 2024 03/07/2021, 02/07/2021 Influenza Vaccine (#1) 2025 7 (Declined), 05/22/2015 (Declined), 09/01/2014 (Declined) Meningococcal B Vaccine Aged Out No l onger eligible based on patient's age to complete this topic Pneumococcal Vaccine 0-49 Aged Out No longer eligible based on patient's age to complete this topic Goals Goal Patient Goal Type Associated Problems Recent Progress Patient-Stated? Author Maintain a healthy diet, exercise regularly and maintain an ideal body weight General No Rosie Quinones MD Stay Tobacco Free Lifestyle No Rosie Quinones MD Procedures Procedure Name Priority Date/Time Associated Diagnosis Comments MM MAMMO DIGITAL ASHOK DIAGN BILAT Routine 11/02/2018 10:47 AM EDT Breast mass, left from Last 3 Months or Most Recently Relevant to Health Maintenance Results * MM MAMMO DIGITAL ASHOK DIAGN BILAT (11/02/2018 10:47 AM EDT) Anatomical Region Laterality Modality Breast Bilateral Mammography 11/02/2018 12:4 4 PM EDT Impressions 11/02/2018 12:44 PM EDT Incomplete-need additional imaging evaluation ([id number]) ~ RECOMMENDATION: Ultrasound of the left breast. This ultrasound examination will be performed and reported separately. ~ DISCLAIMER * Any patient with a palpable abnormality, unexplained by breast imaging, should be managed on clinical basis by the attending physician. * Breast imaging has a false negative rate of 15%. * The patient was notified by mail of the results of this examination. *The patient's information was entered into a reminder system with a target due date for the next mammogram. Narrative 11/02/2018 12:44 PM EDT Procedure:MM MAMMO DIGITAL ASHOK DIAGN BILAT ~ Reason for exam: clinical finding. Indicated problem(s): left breast palpable abnormality for 1 months. N63.20-Unspecified lump in the left breast, unspecified [id number] ~ MM MAMMO DIGITAL ASHOK DIAGN BILAT Bilateral CC and MLO view(s) were taken. The breast tissue is heterogeneously dense. This may lower the sensitivity of mammography. Prior study comparison: Baseline mammographic study. Unremarkable right breast exam. Asymmetric loosely-scattered left breast calcifications. Asymmetric nodularity changes and microcalcification cluster within the left subareolar region which closely correlates with palpable abnormality. Please correlate with diagnostic ultrasound imaging findings. ~ Procedure Note Anton Jean Baptiste DO - 11/02/2018 Procedure:MM MAMMO DIGITAL ASHOK DIAGN BILAT ~ Reason for exam: clinical finding. Indicated problem(s): left breast palpable abnormality for 1 months. N63.20-Unspecified lump in the left breast, [id number] ~ MM MAMMO DIGITAL ASHOK DIAGN BILAT Bilateral CC and MLO view(s) were taken. The breast tissue is heterogeneously dense. This may lower thesensitivity of mammography. Prior study comparison: Baseline mammographic study. Unremarkable right breast exam. Asymmetric loosely-scattered left breast calcifications. Asymmetric nodularity changes and microcalcification cluster within the left subareolar region which closely correlates with palpable abnormality. Please correlate with diagnostic ultrasoundimaging findings. ~ IMPRESSION: Incomplete-need additional imaging evaluation ([id number]) ~ RECOMMENDATION: Ultrasound of the left breast. This ultrasound examination will be performed and reported separately. ~ DISCLAIMER * Any patient with a palpable abnormality, unexplained by breast imaging, should be managed on clinical basis by the attending physician. * Breast imaging has a false negative rate of 15%. * The patient was notified by mail of the results of this examination. *The patient's information was entered into a reminder system with atarget due date for the next mammogram. Donn Lugo MD IM MAMMOGRAPHY ORDERABLES Final Result from Last 3 Months or Most Recently Relevant to Health Maintenance Insurance [facility] [employer] Member Subscriber Plan / Payer (Ef fective 2018-Present) Name:Maris Quigley Relation to Subscriber:Self Name:Maris Quigley Payer ID:Not on file Type:Not on file Address: [place] [id number] [facility] MED[facility]ID
== END 2025-02-15 23:59 | disposition home or self-care (01) ==
LOC: LAB.DROPOF 02-16 11:50
PROVIDERS: PCP Nurse Practitioner; Visit Provider Nurse Practitioner
DX: K59.00 Constipation, unspecified (principal); N39.0 Urinary tract infection, site not specified; R19.00 Intra-abdominal and pelvic swelling, mass and lump, unspecified site
CPT/HCPCS: 80053; 85025; 87086